=== PATIENT | male | born 1960 | race African-American/Black ===

== ENCOUNTER 2023-04-14 09:12 | Observation (INO) ==
--- NOTE | 2023-03-15 12:03 | PAT Medication Instructions ---
Medication Instructions Date of Service March 15, 2023 Home Medications losartan 100 mg-hydrochlorothiazide 25 mg tablet (Hyzaar) 1 tab PO QAM metformin 1,000 mg tablet 1,000 mg PO BID omeprazole magnesium 20 mg tablet,delayed release (Prilosec OTC) 20 mg PO DAILY PRN semaglutide 0.25 mg or 0.5 mg (2 mg/1.5 mL) subcutaneous pen injector (Ozempic) 0.5 mg subcut Q7D albuterol sulfate 90 mcg/actuation aerosol inhaler 2 puff inhalation Q4H PRN ammonium lactate 12 % topical cream 1 applic topical DAILY PRN atorvastatin 20 mg tablet 20 mg PO HS benzonatate 100 mg capsule 100 mg PO TID PRN diclofenac sodium 1 % topical gel 4 g topical QID PRN felodipine 5 mg tablet,extended release 24 hr 5 mg PO QAM ferrous sulfate 325 mg (65 mg iron) tablet 325 mg PO Q2D fluticasone propionate 50 mcg/actuation nasal spray,suspension 1 spray intranasal QAM PRN latanoprost 0.005 % eye drops 1 drp ophthalmic (eye) HS methocarbamol 500 mg tablet 500 mg PO QID PRN oxybutynin chloride 5 mg tablet 5 mg PO TID polyethylene glycol 3350 17 gram/dose oral powder (Miralax) 17 g PO DAILY PRN pregabalin 75 mg capsule 75 mg PO BID tadalafil 20 mg tablet 20 mg PO UD PRN tramadol 50 mg tablet 50 mg PO Q6H PRN umeclidinium 62.5 mcg-vilanterol 25 mcg/actuation powdr for inhalation (Anoro Ellipta) 1 inh inhalation QAM Continue as directed semaglutide 0.25 mg or 0.5 mg (2 mg/1.5 mL) subcutaneous pen injector (Ozempic) 0.5 mg subcut Q7D omeprazole magnesium 20 mg tablet,delayed release (Prilosec OTC) 20 mg PO DAILY PRN(if needed) STOP taking 24 hours before surgery ammonium lactate 12 % topical cream 1 applic topical DAILY PRN diclofenac sodium 1 % topical gel 4 g topical QID PRN DO NOT take the morning of surgery losartan 100 mg-hydrochlorothiazide 25 mg tablet (Hyzaar) 1 tab PO QAM metformin 1,000 mg tablet 1,000 mg PO BID benzonatate 100 mg capsule 100 mg PO TID PRN ferrous sulfate 325 mg (65 mg iron) tablet 325 mg PO Q2D methocarbamol 500 mg tablet 500 mg PO QID PRN oxybutynin chloride 5 mg tablet 5 mg PO TID polyethylene glycol 3350 17 gram/dose oral powder (Miralax) 17 g PO DAILY PRN tadalafil 20 mg tablet 20 mg PO UD PRN Take morning of surgery With a small sip of water, OTHERWISE NOTHING TO EAT OR DRINK AFTER MIDNIGHT: albuterol sulfate 90 mcg/actuation aerosol inhaler 2 puff inhalation Q4H PRN(use if needed; please bring with you to hospital day of surgery if possible) felodipine 5 mg tablet,extended release 24 hr 5 mg PO QAM fluticasone propionate 50 mcg/actuation nasal spray,suspension 1 spray intranasal QAM PRN(if needed) pregabalin 75 mg capsule 75 mg PO BID tramadol 50 mg tablet 50 mg PO Q6H PRN(if needed) umeclidinium 62.5 mcg-vilanterol 25 mcg/actuation powdr for inhalation (Anoro Ellipta) 1 inh inhalation QAM Take evening before surgery metformin 1,000 mg tablet 1,000 mg PO BID albuterol sulfate 90 mcg/actuation aerosol inhaler 2 puff inhalation Q4H PRN(if needed) atorvastatin 20 mg tablet 20 mg PO HS benzonatate 100 mg capsule 100 mg PO TID PRN latanoprost 0.005 % eye drops 1 drp ophthalmic (eye) HS methocarbamol 500 mg tablet 500 mg PO QID PRN(if needed) oxybutynin chloride 5 mg tablet 5 mg PO TID pregabalin 75 mg capsule 75 mg PO BID tramadol 50 mg tablet 50 mg PO Q6H PRN(if needed) Other Notes If you have any questions please call us at [phone] or [phone] or [phone] or [phone]
--- NOTE | 2023-03-18 10:00 | PAT Medication Instructions ---
Medication Instructions Date of Service March 18, 2023 Home Medications losartan 100 mg-hydrochlorothiazide 25 mg tablet (Hyzaar) 1 tab PO QAM metformin 1,000 mg tablet 1,000 mg PO BID omeprazole magnesium 20 mg tablet,delayed release (Prilosec OTC) 20 mg PO DAILY PRN semaglutide 0.25 mg or 0.5 mg (2 mg/1.5 mL) subcutaneous pen injector (Ozempic) 0.5 mg subcut Q7D albuterol sulfate 90 mcg/actuation aerosol inhaler 2 puff inhalation Q4H PRN ammonium lactate 12 % topical cream 1 applic topical DAILY PRN atorvastatin 20 mg tablet 20 mg PO HS benzonatate 100 mg capsule 100 mg PO TID PRN diclofenac sodium 1 % topical gel 4 g topical QID PRN felodipine 5 mg tablet,extended release 24 hr 5 mg PO QAM ferrous sulfate 325 mg (65 mg iron) tablet 325 mg PO Q2D fluticasone propionate 50 mcg/actuation nasal spray,suspension 1 spray intranasal QAM PRN latanoprost 0.005 % eye drops 1 drp ophthalmic (eye) HS methocarbamol 500 mg tablet 500 mg PO QID PRN oxybutynin chloride 5 mg tablet 5 mg PO TID polyethylene glycol 3350 17 gram/dose oral powder (Miralax) 17 g PO DAILY PRN pregabalin 75 mg capsule 75 mg PO BID tadalafil 20 mg tablet 20 mg PO UD PRN tramadol 50 mg tablet 50 mg PO Q6H PRN umeclidinium 62.5 mcg-vilanterol 25 mcg/actuation powdr for inhalation (Anoro Ellipta) 1 inh inhalation QAM - semaglutide/Ozempic instructions: Patient takes on (Wednesday). Patient informed at PAT visit to stop 7 days prior to surgery- voiced understanding. Patient advised to check with prescriber to see if alternative diabetic management changes recommended while holding Ozempic- if so, patient to call back to PAT to update chart and discuss if any further preop medication instructions needed. Continue as directed omeprazole magnesium 20 mg tablet,delayed release (Prilosec OTC) 20 mg PO DAILY PRN(if needed) STOP taking 24 hours before surgery ammonium lactate 12 % topical cream 1 applic topical DAILY PRN diclofenac sodium 1 % topical gel 4 g topical QID PRN DO NOT take the morning of surgery losartan 100 mg-hydrochlorothiazide 25 mg tablet (Hyzaar) 1 tab PO QAM metformin 1,000 mg tablet 1,000 mg PO BID benzonatate 100 mg capsule 100 mg PO TID PRN ferrous sulfate 325 mg (65 mg iron) tablet 325 mg PO Q2D methocarbamol 500 mg tablet 500 mg PO QID PRN oxybutynin chloride 5 mg tablet 5 mg PO TID polyethylene glycol 3350 17 gram/dose oral powder (Miralax) 17 g PO DAILY PRN tadalafil 20 mg tablet 20 mg PO UD PRN Take morning of surgery With a small sip of water, OTHERWISE NOTHING TO EAT OR DRINK AFTER MIDNIGHT: albuterol sulfate 90 mcg/actuation aerosol inhaler 2 puff inhalation Q4H PRN(use if needed; please bring with you to hospital day of surgery if possible) felodipine 5 mg tablet,extended release 24 hr 5 mg PO QAM fluticasone propionate 50 mcg/actuation nasal spray,suspension 1 spray intranasal QAM PRN(if needed) pregabalin 75 mg capsule 75 mg PO BID tramadol 50 mg tablet 50 mg PO Q6H PRN(if needed) umeclidinium 62.5 mcg-vilanterol 25 mcg/actuation powdr for inhalation (Anoro Ellipta) 1 inh inhalation QAM Take evening before surgery metformin 1,000 mg tablet 1,000 mg PO BID albuterol sulfate 90 mcg/actuation aerosol inhaler 2 puff inhalation Q4H PRN(if needed) atorvastatin 20 mg tablet 20 mg PO HS benzonatate 100 mg capsule 100 mg PO TID PRN(if needed) latanoprost 0.005 % eye drops 1 drp ophthalmic (eye) HS methocarbamol 500 mg tablet 500 mg PO QID PRN(if needed) oxybutynin chloride 5 mg tablet 5 mg PO TID pregabalin 75 mg capsule 75 mg PO BID tramadol 50 mg tablet 50 mg PO Q6H PRN(if needed) Other Notes If you have any questions please call us at [phone] or [phone] or [phone] or [phone]
--- NOTE | 2023-03-18 14:53 | Anesthesiology Consultation ---
Date of Service March 18, 2023 Assessment & Plan (1) Encounter for pre-operative examination: - awaiting PCP response to optimization form regarding anemia. PAT testing to be faxed to PCP including EKG tracing. - anemia: Patient states that he has been on iron supplementation in the past, is not currently on supplementation. He was advised we will need his PCP to respond to optimization form and I advised he follow-up with their office for determination on testing and if he needs to resume iron supplement. He verbalized understanding to contact his PCP for guidance on the next steps, denied additional questions or concerns. Surgeon's office made aware patient will need PCP response to optimization form. - check BSG am DOS. - Ozempic instructions: Patient takes on (Wednesday). Patient informed at PAT visit to stop 7 days prior to surgery- voiced understanding. Patient advised to check with prescriber to see if alternative diabetic management changes recommended while holding Ozempic- if so, patient to call back to PAT to update chart and discuss if any further preop medication instructions needed. - Outpatient joint assessment: Patient is currently scheduled for inpatient pathway. If re-evaluated and patient/surgeon requests outpatient pathway, patient is not recommended candidate for outpatient joint program from anesthesia standpoint. Chart Review Chart Review: Pending: Refer to Additional Notes / Consult section and Patient seen in Pre Admission Testing Teaching & Discussion Pre-Anesthesia Teaching/Discussion Notes: Instructed NPO after midnight before s urgery, except medications with 15 cc of water. Medication instructions provided according to the PAT guidelines. History Surgery Operation Date: 04/14/23 07:15 Proposed Procedures p Right Total Knee Arthroplasty - Dennis Wan MD Height/Weight Height: 6 ft Weight: 168.8 kg Allergies Allergy/AdvReac Type Severity Reaction Status Date / Time No Known Allergies Allergy Verified 03/15/23 08:36 Medications Home Medications Medication Instructions Recorded Confirmed Last Taken losartan 100 1 tab PO QAM #0 tabs 02/27/12 03/15/23 04/01/22 mg-hydrochlorothiazide 25 mg tablet (Hyzaar) metformin 1,000 mg tablet 1,000 mg PO BID #0 tabs 02/27/12 03/15/23 04/01/22 omeprazole magnesium 20 mg 20 mg PO DAILY PRN Gastric Reflux 02/27/12 03/15/23 03/28/22 tablet,delayed release (Prilosec ##0 OTC) semaglutide 0.25 mg or 0.5 mg (2 0.5 mg subcut Q7D 03/24/22 03/15/23 03/29/22 mg/1.5 mL) subcutaneous pen injector (Ozempic) albuterol sulfate 90 mcg/actuation 2 puff inhalation Q4H PRN Wheezing 03/26/22 03/15/23 Unknown aerosol inhaler ammonium lactate 12 % topical cream 1 applic topical DAILY PRN skin 03/26/22 03/15/23 Unknown rash atorvastatin 20 mg tablet 20 mg PO HS 03/26/22 03/15/23 04/01/22 benzonatate 100 mg capsule 100 mg PO TID PRN Cough 03/26/22 03/15/23 Unknown diclofenac sodium 1 % topical gel 4 g topical QID PRN Pain 03/26/22 03/15/23 Unknown felodipine 5 mg tablet,extended 5 mg PO QAM 03/26/22 03/15/23 04/02/22 release 24 hr ferrous sulfate 325 mg (65 mg 325 mg PO Q2D 03/26/22 03/15/23 03/29/22 iron) tablet fluticasone propionate 50 1 spray intranasal QAM PRN 03/26/22 03/15/23 04/01/22 mcg/actuation nasal Congestion spray,suspension latanoprost 0.005 % eye drops 1 drp ophthalmic (eye) HS 03/26/22 03/15/23 04/01/22 methocarbamol 500 mg tablet 500 mg PO QID PRN Muscle Spasm 03/26/22 03/15/23 04/01/22 oxybutynin chloride 5 mg tablet 5 mg PO TID 03/26/22 03/15/23 04/01/22 polyethylene glycol 3350 17 17 g PO DAILY PRN Constipation 03/26/22 03/15/23 Unknown gram/dose oral powder (Miralax) pregabalin 75 mg capsule 75 mg PO BID 03/26/22 03/15/23 04/01/22 tadalafil 20 mg tablet 20 mg PO UD PRN intercourse 03/26/22 03/15/23 Unknown tramadol 50 mg tablet 50 mg PO Q6H PRN Pain 03/26/22 03/15/23 04/01/22 umeclidinium 62.5 mcg-vilanterol 1 inh inhalation QAM 03/26/22 03/15/23 04/02/22 25 mcg/actuation powdr for inhalation (Anoro Ellipta) Wheeled Walker #1 ea 03/18/23 03/18/23 Unknown ibuprofen 200 mg tablet 200 mg PO Q6H PRN Pain 03/18/23 03/18/23 Unknown Additional Notes: Patient states is taking ibuprofen as needed for pain. He was instructed and it was written on provided medication instructions that he is to check with surgeon's office for instructions on ibuprofen. He verbalized understanding and agreement, denied questions, concerns or additional medications. Past Medical History Medical History (Updated 03/19/23 @ 09:42 by Emily Bruner PA-C) Anemia h/o iron deficiency, pt states is not currently on iron supplementation Chronic respiratory failure COPD (chronic obstructive pulmonary disease) states "borderline COPD" stable, controlled per pt Diabetes mellitus, type 2 oral + injectable meds History of COVID-19 2020- runny nose, denies hospitalization, no current issues History of home oxygen therapy Pt stated "they have 2LPM oxygen ordered for me to us with exertion, but I never use it"; Uses 4L with BIPAP HS Hx of gastroesophageal reflux (GERD) controlled, stable per pt Hx of glaucoma Hyperlipidemia Hypertension controlled, stable per pt Morbid obesity Sleep apnea 4LPM O2 through BIPAP HS Patient denies h/o stroke, seizures, heart attack, heart failure, blood clots/ DVTs or blood transfusions. Exercise / Class Metabolic Activity III < 4 Walking/Shop/Light housework (avoiding stairs due to knee dysfunction; denies chest discomfort or shortness of breath) Past Family History Family History Mother Family history of diabetes mellitus Sister Family history of diabetes mellitus Past Surgical History Surgical History History of cataract surgery R/L History of colonoscopy Colonoscopy (04/02/22): [facility] at [facility] History of esophagogastroduodenoscopy (EGD) As teen History of tooth extraction Past Anesthesia History No Hx of Anesthesia Complications and No Family Hx of Anesthesia Complications History of PONV No Hx of PONV and No Hx of Motion Sickness Social History Smoking Status: Former smoker tobacco type: cigarettes Smoking cigarettes per day: 1PK PER DAY Do You Dip or Chew Tobacco: No Smoking End Date: 5 years ago Hx Alcohol Use: Yes (hx-quit 12 years ago) Hx Substance Use: Yes substance use type: former substance user, marijuana and crack/cocaine Last Used Substance Other:: hx-12-13 years ago Review of Systems Patient denies chest pain, shortness of breath, dyspnea on exertion, reflux, fever, chills, cough, wheezing, or palpitations. Physical Exam Vital Signs Vitals BP 136/80 P 75 TEMP 98.4 SP02 98% on RA RESP 18 Physical Patient resting comfortably in chair in no acute distress, alert and oriented, responding appropriately throughout visit Full cervical extension range of motion without pain TMD 3.5 finger breadths Mallampati Score 3 Dentition: two partial removable plates; denies chipped or loose teeth, caps/crowns, implants or bridges Lungs: normal respiratory effort. Good air movement, clear throughout to auscultation, no adventitious breath sounds Cardiac: regular rate and rhythm, no murmurs noted Carotid arteries: negative bruit bilat Lab Results Anesthesia Preop Results Results Anesthesia Widget: WBC 7.41 K/ul (4.8-10.8) 03/18/23 Hgb 11.7 g/dl (14.0-18.0) L 03/18/23 Hct 36.8 % (42.0-52.0) L 03/18/23 Plt 235 K/uL (130-400) 03/18/23 Na 135 mmol/L (136-145) L 03/18/23 K 4.3 mmol/L (3.5-5.1) 03/18/23 Cl 101 mmol/L (98-107) 03/18/23 CO2 28 mmol/L (21-32) 03/18/23 BUN 26 mg/dl (6-23) H 03/18/23 Creat 1.42 mg/dl (0.6-1.4) H 03/18/23 Glucose Level 116 mg/dl (70-99(Fasting)) H 03/18/23 PT 10.8 Seconds (9.0-12.0) 03/18/23 PTT 27.0 Seconds (21.0-31.0) 03/18/23 INR 1.0 (0.9-1.1) 03/18/23 HA1c 6.8 % (4.5-5.6) H 03/18/23 Blood Type O Positive 03/18/23 Antibody Screen NEGATIVE 03/18/23 Testing Electrocardiogram Date: 03/18/23 Sinus rhythm with 1st degree AV block, rate 87 bpm Nonspecific T wave abnormality No significant change was found vs 09/28/2019 EKG Chest X-Ray Date: 03/18/23 No acute chest disease Echocardiogram Date: 02/14/20 EF 55-59% Normal LV wall motion Grade I diastolic dysfunction Mild cLVH No significant valvular disease
[~2023-04-14 09:12] MED LIST: ACETAMINOPHEN 500 MG TAB PO SCH; BUPIVACAINE 0.5 % 5 MG/1 ML PF 10ML VIAL ONE; BUPIVACAINE LIPOSOME/PF 266 MG, BUPIVACAINE/EPINEPHRINE 50 ML, SODIUM CHLORIDE 0.9% PF ... INFIL SCH; CeleBREX 200 MG CAP PO SCH; EPINEPHrine INJ 1 MG/ML AMP ONE; FAMOTIDINE 20 MG TAB PO SCH; LR 500ML BOLUS, THEN 15ML/HR IV SCH; LR 60ML/HR IV SCH; METOCLOPRAMIDE HCL 10 MG TABLET PO SCH; ROPIVACAINE 0.5% 5 MG/ML 30 ML VIAL ONE; Scopolamine 1 MG TDSY TD SCH; TRANEXAMIC ACID 1,000 MG **IV Intra-op IV SCH
[2023-04-14] MEDS ORDERED: LIDOCAINE 2% 2 ML VIAL/AMP(20MG/ML) INFIL ONE (09:28)
[2023-04-14] MEDS ORDERED: MIDAZOLAM HCL 1 MG/ML 2ML VIAL ONE ×2 (09:28→09:29)
[2023-04-14] MEDS ORDERED: PROPOFOL IV EMULSION 10 MG/ML 20 ML VIAL IV ONE (09:28)
[2023-04-14] MEDS ORDERED: ONDANSETRON INJ 2 MG/ML 2 ML VIAL ONE (09:28)
--- NOTE | 2023-04-14 11:19 | History & Physical Bridge Note ---
Date of Service April 14, 2023 History & Physical Bridge Note I have examined the patient, reviewed the History & Physical and in the interval since the performance of the History & Physical I have noted the following changes of clinical significance: no changes noted
[2023-04-14] MEDS ORDERED: SODIUM CHLORIDE 0.9% PF 50 ML VIAL ONE (11:27)
[2023-04-14] MEDS ORDERED: BUPIVACAINE/EPINEPHRINE 0.25% 1:200,000 30 ML VIAL ONE (11:27)
[2023-04-14] MEDS ORDERED: BUPIVACAINE LIPOSOME 1.3% 266 MG/20 ML VIAL ONE (11:28)
[2023-04-14] MEDS ORDERED: KETOROLAC 30 MG/ML VIAL ONE (12:02)
[2023-04-14] MEDS ORDERED: DEXAMETHASONE SOD INJ 4 MG/ML VIAL ONE (12:02)
[2023-04-14] MEDS ORDERED: VANCOMYCIN HCL 1000MG/20ML VIAL ONE (12:18)
--- NOTE | 2023-04-14 13:55 | Operative Report ---
PG Post Operative Report Pre & Post Diagnosis Operation Date: 04/14/23 10:40 Pre-Op Diagnosis: Right Knee Degenerative Joint Disease Post-Op Diagnosis: Right Knee Degenerative Joint Disease I identified the patient and participated in the time-out.: Yes Procedure Operation Date: 04/14/23 10:40 Actual Procedures p Right Total Knee Arthroplasty(Right) - Dennis Wan MD Surgeon Dennis Wan MD [employer] Appliances Salesperson Michael Crocker PA-C Estimated Blood Loss 50 Findings Consistent with Post-Op Diagnosis Operative findings revealed advanced right knee DJD. He had extensive grade 4 [id number] disease in the medial compartment with punctate hemorrhage in the medial femoral condyle. He had a varus deformity. His knee. Osteophytes in all 3 compartments. Moderate-sized joint effusion. Specimens Right knee sent for pathology Anesthesia Type Spinal MAC Complications none Indications Patient is a 62-year-old very large gentleman has had a long history of bilateral knee pain discomfort right side greater than left he has been through extensive conservative treatment over the past several years has become less successful. X-rays show advanced bilateral knee DJD. The right knee was bothering more than the left. He elected proceed with surgical treatment. Description of Procedure Operative implants consist of: 1. Biomet Vanguard size 72.5 right posterior stabilized femoral component. 2. Biomet size 79 tibial tray. 3. 18 mm posterior stabilized polyethylene insert. 4. 34 x 8-1/2 all poly patella. The patient was taken to the operating, identified, and placed on the operating table supine position but all contact areas were appropriately padded. IV antibiotics arrived by anesthesia team. A spinal anesthetic and abductor canal block had been divided holding area. Right thigh tent was then placed. Right lower extremities then prepped and draped in usual sterile fashion. The right leg was elevated and exsanguinated with use of an Esmarch and the tourniquet was placed at 300 mmHg. An anterior approach to the right knee was then performed to longitudinal incision centered over the patella. Sharp dissection was carried through subcutaneous tissue down the extensor mechanism. A medial parapatellar arthrotomy incision was made. Some subperiosteal dissection was carried out medially. The fat pad was dissected from Neath patella tendon. Lateral patellofemoral ligament was released. Patella subluxated laterally and the knee was flexed. The osteophytes taken off distal femur. The ACL and PCL were then released from distal femur the tibia subluxated anteriorly. The external tibial alignment jig was then placed on the anterior face of the tibia and adjusted 16 mm medially. Proximal tibial cut was made remove about 2 mm of bone from the medial side. The tibia sized to a size 79. Attention drawn to the femur. The distal femur returned with a sharp drill. Intramedullary canal was suction. A right 6 degree valgus cutting guide was placed. Distal femoral cutting block was pinned in place. This femoral cut was made to take an additional 3 mm of bone off distal femur. Femur was then sized to a size 72.5. The AP cutting block was pinned parallel to the epicondylar axis which was 4 degrees of external rotation. Anterior cut, anterior chamfer, posterior cut, posterior chamfer cuts were made. The box cutting guide was placed in just slight lateral and the box cut was made. The knee was flexed. The remnants of the medial and lateral menisci were excised. The osteophytes taken off the posterior aspect of femur. Trial femoral component was placed. The tibial tray was pinned in maximum external rotation and the drill and stem punch used to create defect in proximal tibia for the tibial tray. Knee was then trialed and the 18 mm insert fit most appropriately. He did have quite a bit of bony gap once bone resections were made. Attention drawn the patella. The patella was cleaned of all soft tissues. Patella thickness measured 22 mm in thickness was cut down to 15. It was sized to a size 34 patella. The lug holes were drilled for the 34 patella. The lateral osteophytes removed. The lateral osteophyte was removed. Patella button was placed. The patella tracked nicely with no thumbs test. Attention drawn to placing permanent components. All trial components were removed. Bone plug was placed into the distal femur limit blood loss. A double batch Palacos G cement was mixed. I did add an additional gram of vancomycin to the cement due to his diabetes and his obesity. A Biomet Vanguard size 72.5 right posterior stabilized femoral component, a size 79 tibial tray, a 18 mm posterior stabilized polyethylene insert, and a 34 x 8 and half all Paller patella then cemented in place. New spreadout in full extension till cement hardened. Final cement check was then performed. Pericapsular tissues were injected with total 100 cc of combination of 20 cc of Exparel, 30 cc normal saline, 50 cc of quarter percent Marcaine with ep inephrine. Patient did receive 1 g tranexamic acid. The tourniquet was then let down for final tourniquet time of 69 minutes. Hemostasis assured with electrocautery. Extensor mechanism checked found to be intact through subcutaneous tissue then closed with 2 Dexon suture in buried interrupted fashion skin was closed skin janice. Leg was then cleaned and dried and sterile dressing was Xeroform, 4 fours, sterile ABD pad, sterile cast padding, Cj bandage were applied. Patient then transferred to the recovery room in stable condition. Patient tolerated procedure well and there were no com plications. Michael Crocker, my physician assistant clinical nurse manager, was present for the entire procedure. His assistance was essential and required for appropriate patient positioning, prepping and draping, surgical exposure, performing the technical details of the operation, placement the implants, closure of the wound, and placement of the sterile bandage. I attest to the content of the Intraoperative Record and any orders documented therein. Any exceptions are noted below.
[2023-04-14] MEDS ORDERED: ePHEDrine sulfate 50 MG/ML AMP IV PRN (14:16)
[2023-04-14] MEDS ORDERED: ATROPINE SULFATE 0.1 MG/ML 10ML SYR IV PRN (14:16)
--- NOTE | 2023-04-14 14:28 | XRay Report ---
RIGHT KNEE 2 VIEWS History: Right total knee arthroplasty. Degenerative arthritis. Postop. FINDINGS: The patient is status post a right total knee arthroplasty. The hardware is intact. No frac ture or dislocation. Skin janice are in place. IMPRESSION: Right total knee arthroplasty. No evidence for hardware complication. ACT 112: Negative or not required by law. Electronically signed by: Jw Odom M.D. 04/14/2023 2:26 PM
--- NOTE | 2023-04-14 14:49 | Anesthesiology Progress Note ---
Date of Service April 14, 2023 Anesthesia Post Procedure Vital Signs Vital Signs: Temp Pulse Pulse Resp BP Pulse Ox O2 Del Method 04/14/23 14:40 81 20 147/89 H 96 Room Air 04/14/23 14:30 36.4 C L 82 16 139/88 97 Room Air 04/14/23 14:20 79 13 168/88 H 99 Room Air 04/14/23 14:10 82 17 139/92 100 Oxymask 04/14/23 14:00 83 14 135/82 100 Oxymask 04/14/23 13:50 36.0 C L 88 16 123/76 99 Oxymask 04/14/23 09:54 37.1 C 85 20 189/96 H 98 Room Air O2 Flow Rate 04/14/23 14:40 04/14/23 14:30 04/14/23 14:20 04/14/23 14:10 4 04/14/23 14:00 4 04/14/23 13:50 6 04/14/23 09:54 Transfer of Care Handoff Completed per policy Notes Mental Status: alert / awake / arousable Patient Amnestic to Procedure: Yes Nausea / Vomiting: adequately controlled Pain: adequately controlled Airway Patency, RR, SpO2: stable & adequate BP & HR: stable & adequate Hydration State: stable & adequate Neuraxial Anesthesia: was administered and sensory block is resolving Anesthetic Complications: no major complications apparent
[2023-04-14] MEDS ORDERED: PANTOprazole 40 MG TAB PO PRN (15:28)
[2023-04-14] MEDS ORDERED: BENZONATATE 100 MG CAPSULE PO PRN (15:28)
[2023-04-14] MEDS ORDERED: METOCLOPRAMIDE HCL INJ 5 MG/ML 2 ML VIAL IV PRN (15:28)
[2023-04-14] MEDS ORDERED: METHOCARBAMOL 500 MG TABLET PO PRN (15:28)
[2023-04-14] MEDS ORDERED: bisacodyL 10 MG SUPP PR PRN (15:28)
[2023-04-14] MEDS ORDERED: PHARMACY GLYCEMIC MGMT CONSULT PRN (15:28)
[2023-04-14] MEDS ORDERED: GLUCOSE 40% GEL 15 GM TUBE PO PRN (15:28)
[2023-04-14] MEDS ORDERED: ALBUTEROL HFA 8 GM INHALER INH PRN (15:28)
[2023-04-14] MEDS ORDERED: CARBOHYDRATES FOR HYPOGLYCEMIA PO PRN (15:28)
[2023-04-14] MEDS ORDERED: POLYETHYLENE (MIRALAX) 17 GM PACK PO PRN (15:28)
[2023-04-14] MEDS ORDERED: NO NSAIDS SCH (15:28)
[2023-04-14] MEDS ORDERED: NALOXONE HCL 0.4 MG/1 ML VIAL/CARP IV PRN (15:28)
[2023-04-14] MEDS ORDERED: GLUCAGON FOR INJ 1 MG VIAL SQ PRN (15:28)
[2023-04-14] MEDS ORDERED: GLUCOSE 10 TAB/TUBE PO PRN (15:28)
[2023-04-14] MEDS ORDERED: SODIUM CHLORIDE 0.9% 1,000 ML IV SCH (15:28)
[2023-04-14] MEDS ORDERED: DEXTROSE 50% 50 ML SYRINGE IV PRN (15:28)
[2023-04-14] MEDS ORDERED: MAGNESIUM HYDROXIDE SUSP 30 ML UDC PO PRN (15:28)
[2023-04-14] MEDS ORDERED: NON-FORMULARY MEDICATION (Tadalafil 20 mg Tablet) PO PRN (15:28)
[2023-04-14] MEDS ORDERED: ONDANSETRON INJ 2 MG/ML 2 ML VIAL IV PRN (15:28)
[2023-04-14] MEDS ORDERED: ALUMINUM/MAGNESIUM SUSP 30 ML UDC PO PRN (15:28)
[2023-04-14] MEDS ORDERED: NON-FORMULARY MEDICATION (Semaglutide [Ozempic] 0.25 mg or 0.5 mg(2 mg/1.5 mL) Pen Injecto SQ SCH (15:28)
[2023-04-14] MEDS ORDERED: FLUTICASONE PROPIONATE NA SPR 16 GM BTL NAE PRN (15:28)
[2023-04-14] MEDS ORDERED: NovoLIN-N (NPH) PER UNIT CHARGE SQ SCH (16:00)
[2023-04-14] MEDS: Scopolamine CHECK PATCH PLACEMENT SCH ×2 (16:35→23:16)
[2023-04-14] MEDS: oxyCODONE HCL IR 5 MG TAB (IMMEDIATE RELEASE) PO PRN ×2 (16:38→23:17)
[2023-04-14] MEDS: ACETAMINOPHEN 500 MG TAB PO SCH ×2 (16:39→20:21)
[2023-04-14] MEDS: INSULIN ASPART PER UNIT CHARGE SC SCH ×3 (16:49→23:16)
[2023-04-14] MEDS: ASCORBIC ACID 500 MG TAB PO SCH (16:51)
[2023-04-14] MEDS: oxyBUTYnin chloride 5 MG TAB PO SCH ×2 (16:51→20:20)
[2023-04-14] MEDS: HYDROmorphone INJ 0.5 MG/0.5 ML SYR IV PRN (17:41)
[2023-04-14] MEDS ORDERED: TRANEXAMIC ACID / 0.7% NACL 1,000 MG/100 ML BAG IV SCH (20:00)
[2023-04-14] MEDS: ceFAZolin 2000MG 2,000 MG/15 ML SYR IV SCH (20:15)
[2023-04-14] MEDS: ASPIRIN 81 MG ECTAB PO SCH (20:23)
[2023-04-14] MEDS: DOCUSATE SODIUM 100 MG CAP PO SCH (20:23)
[2023-04-14] MEDS: SENNA 8.6 MG TAB PO SCH (20:24)
[2023-04-14] MEDS: PREGABALIN 75 MG CAP PO SCH (20:28)
[2023-04-14] MEDS ORDERED: LATANOPROST 0.005% OP SOLN 2.5 ML BTL OP SCH (21:00)
[2023-04-14] MEDS ORDERED: ATORVASTATIN 20 MG TAB PO SCH (21:00)
[2023-04-14] MEDS ORDERED: SENNA 8.6 MG TAB PO SCH (21:00)
[2023-04-15] MEDS: HYDROmorphone INJ 0.5 MG/0.5 ML SYR IV PRN ×3 (01:55→10:48)
[2023-04-15] MEDS: ceFAZolin 2000MG 2,000 MG/15 ML SYR IV SCH (05:03)
[2023-04-15] MEDS: INSULIN ASPART PER UNIT CHARGE SC SCH ×2 (05:16→08:32)
[2023-04-15] MEDS: oxyCODONE HCL IR 5 MG TAB (IMMEDIATE RELEASE) PO PRN (05:16)
[2023-04-15 07:27] LABS: Hematocrit (blood only) 32.4 % (42.0-52.0); Hemoglobin 10.3 g/dl (14.0-18.0); Mean Corpuscular Hemoglobin 25.2 pg (25.0-34.0); Mean Corpuscular Hgb Conc 31.8 g/dL (32.0-36.0); Mean Corpuscular Volume 79.2 fL (80.0-100.0); Mean Platelet Volume 10.7 fL (9.4-12.4); Platelet Count 215 K/uL (130-400); RDW Coefficient of Variation 15.9 % (11.5-14.5); RDW Standard Deviation 45.7 fL (36.4-46.3); Red Blood Count 4.09 M/uL (4.70-6.10); White Blood Count 11.02 K/ul (4.8-10.8)
[2023-04-15 07:47] LABS: BUN Creatinine Ratio 18.7 (10-20); Calcium 8.7 mg/dl (8.6-10.3); Creatinine Clr Calc Pharmacy 94.8 ml/min; Est GFR (African American) 65.3 ml/min; Est GFR (Non-African American) 56.4 ml/min; Potassium 4.2 mmol/L (3.5-5.1)
[2023-04-15] MEDS ORDERED: dexAMETHasone 4 MG TAB PO SCH (08:00)
[2023-04-15] MEDS: Scopolamine CHECK PATCH PLACEMENT SCH (08:27)
[2023-04-15] MEDS: ACETAMINOPHEN 500 MG TAB PO SCH (08:28)
[2023-04-15] MEDS: SENNA 8.6 MG TAB PO SCH (08:29)
[2023-04-15] MEDS: DOCUSATE SODIUM 100 MG CAP PO SCH (08:30)
[2023-04-15] MEDS: oxyBUTYnin chloride 5 MG TAB PO SCH (08:31)
[2023-04-15] MEDS: ASCORBIC ACID 500 MG TAB PO SCH (08:31)
[2023-04-15] MEDS: PREGABALIN 75 MG CAP PO SCH (08:35)
[2023-04-15] MEDS ORDERED: MULTIVITAMIN TAB PO SCH (09:00)
[2023-04-15] MEDS ORDERED: UMECLIDINIUM/VILANTEROL 62.5/25MCG 7 PUFFS/INHALER INH SCH (09:00)
[2023-04-15] MEDS ORDERED: NovoLIN-N (NPH) PER UNIT CHARGE SQ SCH (09:00)
[2023-04-15] MEDS ORDERED: FELODIPINE 5 MG TABCR PO SCH (09:00)
[2023-04-15] MEDS ORDERED: LOSARTAN/HCTZ 50/12.5MG TAB PO SCH (09:00)
[2023-04-15] MEDS ORDERED: TAMSULOSIN HCL 0.4 MG CAP PO SCH (09:00)
[2023-04-15] MEDS ORDERED: FERROUS SULFATE 325 MG TAB PO SCH (09:00)
[2023-04-15] MEDS: ASPIRIN 81 MG ECTAB PO SCH (09:47)
--- NOTE | 2023-04-15 11:13 | Surgery Progress Note ---
Date of Service April 15, 2023 Assessment & Plan (1) Status post right knee replacement: Plan: 62-year-old gentleman postop day 1 from right knee replacement doing reasonably well. Complaining of persistent pain but looks comfortable and nothing out of the ordinary. No chest pain or shortness of breath. He is neurologically intact. Plan: 1. DVT prophylaxis including thigh-high teds SCDs and aspirin twice a day. 2. PT OT weight-bear as tolerated right total knee protocol. 3. Pain control doing okay with current pain regimen. Still complaining of significant amount of pain but looks quite comfortable. I will see if we can add some anti-inflammatory medicine as his creatinine is in the normal range. 4. Disposition plan to discharge home with some home health Admission and Anticipated Discharge Date Admission Date: April 14, 2023 Subjective 62-year-old large black gentleman postop day 1 from a right knee replacement. Seems to be doing okay. Still complaining of a reasonable amount of pain. He is requesting more pain medicine. No chest pain or shortness of breath. Not feeling dizzy or lightheaded. He is hoping to go home today. Physical Exam Physical Exam: Physical exam shows a large gentleman sitting in his bedside chair. He looks pretty comfortable despite his complaints of pain. Examination of the right leg reveals a dressing clean dry and intact. He can dorsiflex and plantarflex his foot appropriately. He is neurologically intact. Respiratory: normal respiratory effort, lungs clear to auscultation Cardiovascular: RRR, no murmur, no edema Gastrointestinal (Abdomen): normal bowel sounds, soft, nontender, no hepatosplenomegaly Results & Data Vital Signs (Past 12 Hours) Vital Signs Temp Pulse Resp BP Pulse Ox O2 Del Method 04/15/23 07:00 37.2 C 92 H 18 166/97 H 94 Room Air 04/15/23 03:18 36.9 C 88 18 154/76 H 94 Room Air Laboratory Results Hemoglobin is 10.3. Hematocrit is 32.4. Electrolytes are stable. PG Care Time/CCT Total # of Minutes Spent Total Time Spent with Patient: Total time spent is greater than 50% in coordination of care (as documented) at patient's floor/unit and/or counseling patient: Coding Level of Care Code 46221 Post Operative Follow-Up Diagnoses Status post right knee replacement Z96.651
[2023-04-15] MEDS ORDERED: KETOROLAC TROMETHAMINE 15 MG/ML VIAL IV PRN (11:14)
--- NOTE | 2023-04-21 08:42 | Discharge Summary ---
Date of Service April 21, 2023 Discharge Data Procedures Performed Operation Date: 04/14/23 10:40 Actual Procedures p Right Total Knee Arthroplasty(Right) - Dennis Wan MD Hospital Course (1) Status post right knee replacement: This is a 62 year old patient admitted on 04/14/23 and underwent total knee arthroplasty. He was tolerated the procedure well and there were no complications. Transferred to the PACU post op and later to the orthopedic floor for further care. He was given ancef for antibiotic prophylaxis. He was also given DAKSHA stockings, SCDs, and aspirin for DVT prophylaxis. Hemoglobin, hematocrit, and vital signs were monitored during his hospital stay and remained stable. Did not require any blood transfusions. There were no complications during his hospital stay. By post op day #1 the patient was tolerating a diabetic diet, pain was reasonably controlled with oral pain medicine, and he was participating in physical therapy. On post op day #1 the patient was discharged home and set up with home health care. He was given printed discharge instructions including prescriptions for extra strength tylenol, aspirin, cefadroxil, ketorolac, zofran, senokot, flomax, and oxycodone. Continue physical therapy, weight bearing as tolerated. Continue DAKSHA stockings. Follow up approximately 2 weeks post op or sooner if there are problems or concerns. Coding Level of Care Code None Diagnoses Status post right knee replacement Z96.651
== END 2023-04-15 11:37 | disposition home health service (06) ==
LOC: 3E 09:12 → ASU 09:12